=== PATIENT | female | born 2000 | race Caucasian/White ===

== ENCOUNTER 2023-07-03 10:58 | Emergency (ER) | payer SELFPAY ==
[2023-07-03] MEDS ORDERED: ONDANSETRON 4 MG/2 ML VIAL ONE (11:36)
[2023-07-03] MEDS ORDERED: LORazepam 2 MG/ML VIAL ONE (11:37)
[2023-07-03] MEDS ORDERED: NA CHLORIDE 0.9% 1,000 ML ONE (11:37)
[2023-07-03 12:04] LABS: Absolute Lymphocytes (CBC) 0.9 K/uL (0.7-4.9); Absolute Monocytes 0.5 K/uL (0.1-1.3); Absolute Neutrophil 11.3 K/uL (1.8-8.0); Basophils % 0.1 % (0-1.3); Eosinophils % 0.1 % (0-4.4); Hematocrit 41.9 % (36.0-45.0); Hemoglobin 14.3 g/dL (12.0-15.0); Lymphocytes % 7.3 % (15.3-44.8); MCH 29.9 pg (27.0-35.0); MCHC 34.1 g/dL (32.0-36.0); MCV 87.6 fL (80-100); MPV 8.2 fL (7.6-11.3); Monocytes % 3.9 % (3.3-12.3); Neutrophils % 88.6 % (41.7-73.7); Platelets 293 thou/uL (152-406); RBC Red Blood Cell Count 4.79 M/uL (3.86-4.86); Red Cell Distribution Width 12.7 % (12.1-15.2)
[2023-07-03 12:07] LABS: Specific Gravity 1.021 (1.005-1.030)
[2023-07-03 12:10] LABS: PT Prothrombin Time 13.8 SECONDS (9.5-12.5); PTT, Activated Partial Thromb 34.1 SECONDS (24.3-36.9); Protime INR 1.26
[2023-07-03 12:11] LABS: Specific Gravity 1.021 (1.005-1.030); Sqamous Epithelial <5 /HPF (None Seen); Urine Bacteria None Seen /HPF (<20); Urine Bilirubin NEGATIVE (Negative); Urine Blood Negative (Negative); Urine Clarity Turbid (Clear); Urine Color Yellow (Yellow); Urine Culture Reflex Order NOT NEEDED; Urine Glucose NEGATIVE (Negative); Urine Ketones 3+ (Negative); Urine Microscopic Reflex YN ORDER UMIC; Urine Mucus Slight /HPF (None Seen); Urine Nitrite NEGATIVE (Negative); Urine Protein TRACE (Negative); Urine RBC <5 /HPF (None Seen); Urine Urobilinogen Normal (Normal); Urine WBC <5 /HPF (<5); Urine pH 7.5 (5.0-7.0)
[2023-07-03 12:19] LABS: Barbiturates NEGATIVE (NEGATIVE); Benzodiazepines NEGATIVE (NEGATIVE); Cocaine NEGATIVE (NEGATIVE); METHAMPHETAM NEGATIVE (NEGATIVE); Methadone NEGATIVE (NEGATIVE); Opiates NEGATIVE (NEGATIVE); Phencyclidine NEGATIVE (NEGATIVE); THC Cannibis POSITIVE (NEGATIVE)
[2023-07-03 12:31] LABS: ALT/SGPT 105 U/L (13-56); AST/SGOT 21 U/L (15-37); Albumin 4.6 g/dL (3.4-5.0); Albumin/Globulin Ratio 1.3 (1.1-1.8); Alkaline Phosphatase 79 U/L (45-117); Anion Gap 14.1 mEq/L (5.0-15.0); BUN Blood Urea Nitrogen 6 mg/dL (7-18); Bicarbonate 21 mEq/L (21-32); Bilirubin Direct 0.2 mg/dL (0-0.2); Bilirubin Indirect, Calculated 0.7 mg/dL (0.2-0.8); Bilirubin Total 0.9 mg/dL (0.2-1.0); Globulin 3.6 g/dL (2.3-3.5); Glomerular Filtration Rate 90 ml/min (=/>90); Glucose Level 136 mg/dL (74-106); Potassium 3.1 mEq/L (3.5-5.1); Protein, Total 8.2 g/dL (6.4-8.2); Sodium Level 136 mEq/L (136-145)
--- NOTE | 2023-07-03 13:01 | EDPHYS ---
Physician Documentation [facility] Name: Iron Yuan Age: 23 yrs Sex: Female : 2000 Arrival Date: 07/03/2023 Time: 10:58 Bed 18 Private MD: ED Physician Abebe Hightower HPI: 07/02 12:54 This 23 yrs old Female presents to ER via Ambulatory with complaints of jordon Anxiety. 12:54 The patient presents to the emergency department with anxiety, over unknown jordon circumstances. Onset: The symptoms/episode began/occurred just prior to arrival, this morning. Past psychiatric history: Prior diagnosis: anxiety. The patient presents to the emergency department with nausea, vomiting, that is intermittent. Possible causes: unknown. The symptoms are aggravated by food , The symptoms are alleviated by nothing. remaining still. Associated signs and symptoms: Pertinent positives: abdominal pain, nausea, vomiting. Historical: - Allergies: 11:13 No Known Allergies; hb - Home Meds: 11:13 Lexapro Oral [Active]; gabapentin oral [Active]; hb - PMHx: 11:13 Anxiety; hb - PSHx: 11:13 None; hb - Immunization history:: Adult Immunizations up to date. - Infectious Disease History:: Denies. - Social history:: Smoking status: Patient denies any tobacco usage or history of. - Family history:: not pertinent. ROS: 12:54 Constitutional: Negative for fever, chills, and weight loss, Eyes: Negative for injury, jordon pain, redness, and discharge, ENT: Negative for injury, pain, and discharge, Neck: Negative for injury, pain, and swelling, Cardiovascular: Negative for chest pain, palpitations, and edema, Respiratory: Negative for shortness of breath, cough, wheezing, and pleuritic chest pain, Abdomen/GI: Negative for abdominal pain, nausea, vomiting, diarrhea, and constipation, Back: Negative for injury and pain, : Negative for injury, bleeding, discharge, and swelling, MS/Extremity: Negative for injury and deformity, Skin: Negative for injury, rash, and discoloration, Neuro: Negative for headache, weakness, numbness, tingling, and seizure, Psych: Negative for depression, anxiety, suicide ideation, homicidal ideation, and hallucinations, Allergy/Immunology: Negative for hives, rash, and allergies, Endocrine: Negative for neck swelling, polydipsia, polyuria, polyphagia, and marked weight changes, Hematologic/Lymphatic: Negative for swollen nodes, abnormal bleeding, and unusual bruising, Exam: 12:54 Constitutional: This is a well developed, well nourished patient who is awake, alert, jordon and in no acute distress. Head/Face: Normocephalic, atraumatic. Eyes: Pupils equal round and reactive to light, extra-ocular motions intact. Lids and lashes normal. Conjunctiva and sclera are non-icteric and not injected. Cornea within normal limits. Periorbital areas with no swelling, redness, or edema. ENT: Nares patent. No nasal discharge, no septal abnormalities noted. Tympanic membranes are normal and external auditory canals are clear. Oropharynx with no redness, swelling, or masses, exudates, or evidence of obstruction, uvula midline. Mucous membranes moist. Neck: Trachea midline, no thyromegaly or masses palpated, and no cervical lymphadenopathy. Supple, full range of motion without nuchal rigidity, or vertebral point tenderness. No Meningismus. Chest/axilla: Normal chest wall appearance and motion. Nontender with no deformity. No lesions are appreciated. Cardiovascular: Regular rate and rhythm with a normal S1 and S2. No gallops, murmurs, or rubs. Normal PMI, no JVD. No pulse deficits. Respiratory: Lungs have equal breath sounds bilaterally, clear to auscultation and percussion. No rales, rhonchi or wheezes noted. No increased work of breathing, no retractions or nasal flaring. Abdomen/GI: Soft, non-tender, with normal bowel sounds. No distension or tympany. No guarding or rebound. No evidence of tenderness throughout. Back: No spinal tenderness. No costovertebral tenderness. Full range of motion. Skin: Warm, dry with normal turgor. Normal color with no rashes, no lesions, and no evidence of cellulitis. MS/ Extremity: Pulses equal, no cyanosis. Neurovascular intact. Full, normal range of motion. Neuro: Awake and alert, GCS 15, oriented to person, place, time, and situation. Cranial nerves II-XII grossly intact. Motor strength 5/5 in all extremities. Sensory grossly intact. Cerebellar exam normal. Normal gait. Psych: Awake, alert, with orientation to person, place and time. Behavior, mood, and affect are within normal limits. 12:54 ECG was reviewed by the Attending Physician. Vital Signs: 11:13 BP 155 / 90; Pulse 68; Resp 16; Temp 98; Pulse Ox 100% ; Weight 45.36 kg; Height 5 ft. hb 0 in. ; Pain 0/10; 12:10 BP 147 / 95; Pulse 49; Resp 16 S; Pulse Ox 100% on R/A; kc6 13:28 BP 124 / 75; Pulse 50; Resp 16 S; Pulse Ox 98% on R/A; kc6 11:13 Body Mass Index 19.53 (45.36 kg, 152.4 cm) hb 11:13 Pain Scale: Adult hb MDM: 11:05 Patient medically screened. [facility] 12:58 Differential diagnosis: drug withdrawal. Nonspecific abd pain, gastritis, pancreatitis, jordon viral gastroenteritis, gastroenteritis. Data reviewed: vital signs, nurses notes, lab test result(s), EKG. Consideration of Admission/Observation Escalation of care including admission/observation considered. I considered the following discharge prescriptions or medication management in the emergency department Medications were administered in the Emergency Department. See MAR. Independent interpretation of the following test(s) in the Emergency Department EKG: See my EKG interpretation above. Test considered but Not performed: CT: no ct abd/pelvis. Historians other than the Patient: Friend: friend informed. Care significantly affected by the following chronic conditions:. 07/02 11:21 Order name: Acetaminophen; Complete Time: 12:50 [facility] 07/02 11:21 Order name: Basic Metabolic Panel; Complete Time: 12:50 [facility] 07/02 11:21 Order name: CBC with Diff [facility] 07/02 11:21 Order name: ETOH Level; Complete Time: 12:50 [facility] 07/02 11:21 Order name: Hepatic Function; Complete Time: 12:50 [facility] 07/02 11:21 Order name: PT-INR; Complete Time: 12:50 [facility] 07/02 11:21 Order name: Test, Urine; Complete Time: 12:50 [facility] 07/02 11:21 Order name: Ptt, Activated; Complete Time: 12:50 [facility] 07/02 11:21 Order name: Salicylate; Complete Time: 12:50 [facility] 07/02 11:21 Order name: Urinalysis w/ reflexes; Complete Time: 12:50 [facility] 07/02 11:21 Order name: Urine Drug Screen; Complete Time: 12:50 [facility] 07/02 13:03 Order name: CBC Smear Scan EDMS 07/02 11:21 Order name: EKG; Complete Time: 11:22 [facility] 07/02 11:21 Order name: EKG - Nurse/Tech; Complete Time: 12:01 [facility] 07/02 11:21 Order name: IV Saline Lock; Complete Time: 12: [facility] 07/02 11:21 Order name: Labs collected and sent; Complete Time: 12: [facility] 07/02 11:21 Order name: Suicide Screening ([place]); Complete Time: 12: [facility] EC:54 Rate is 49 beats/min. QRS [place] is Normal. MD interval is normal. QRS interval is jordon normal. QT interval is normal. No Q waves. T waves are Normal. No ST changes noted. Clinical impression: Sinus bradycardia. Interpreted by me. Reviewed by me. Administered Medications: 12:01 Drug: NS 0.9% IV 1000 ml IV at 1 bolus Per protocol; 1000 mL bolus Route: IV; Rate: 1 kc6 bolus; Site: right antecubital; 13:29 Follow up: Response: No adverse reaction; IV Status: Completed infusion; IV Intake: kc6 1000ml 12:01 Drug: Ondansetron IVP 4 mg IVP once; over 2 minutes Route: IVP; Site: right antecubital;kc6 12:25 Follow up: Response: No adverse reaction; Nausea is decreased; Vomiting decreased kc6 12:01 Drug: Ativan IVP 1 mg IVP once Route: IVP; Site: right antecubital; kc6 12:25 Follow up: Response: No adverse reaction; Anxiety decreased; RASS: Drowsy (-1) kc6 13:20 Drug: Potassium PO Effervescent Tablet 25 mEq PO once; dissolve in 4 ounces of water or kc6 juice Route: PO; 13:29 Follow up: Response: No adverse reaction kc6 13:20 Drug: Promethazine IVP 12.5 mg IVP once Route: IVP; Site: right antecubital; kc6 13:29 Follow up: Response: No adverse reaction kc6 Disposition Summary: 07/03/23 13:00 Discharge Ordered Notes: Location: Home jordon Problem: new jordon Symptoms: have improved jordon Condition: Stable jordon Diagnosis - Anxiety disorder, unspecified jordon - Vomiting jordon - Cannabis abuse with cannabis-induced anxiety disorder jordon - Hypokalemia jordon Followup: jordon - With: Private Physician - When: 2 - 3 days - Reason: Recheck today's complaints, Continuance of care, Re-evaluation by your physician Followup: jordon - With: Gentry Schmidt DO - When: 2 - 3 days - Reason: Recheck today's complaints, Re-evaluation by your physician Discharge Instructions: - Discharge Summary Sheet jordon - Potassium Content of Foods jordon - Cannabis Use Disorder jordon - Supporting Someone With an Addiction jordon - Social Anxiety Disorder, Adult jordon - Generalized Anxiety Disorder, Adult jordon - Hypokalemia jordon - Managing Anxiety, Adult jordon - Cannabinoid Hyperemesis Syndrome jordon Forms: - Medication Reconciliation Form jordon - Antibiotic Education jordon - Prescription Opioid Use jordon - Patient Portal Instructions jordon - Leadership Thank You Letter [facility] Prescriptions: - ondansetron 4 mg Oral Tablet,disintegrating - take 1 tablet ORAL route every 6-8 hours; 20 tablet; Refills: 0, Product jordon Selection Permitted Signatures: Dispatcher [employer] EDMS Abebe Hightower MD MD cha Baxter, Heather, RN RN Mimi Fernando RN RN kc6 Corrections: (The following items were deleted from the chart) 11: 11:22 ACETAMINOPHEN+C.LAB.BRZ ordered. EDMS EDMS 11: 11:22 BASIC METABOLIC PANEL+C.LAB.BRZ ordered. EDMS EDMS 11: 11:22 CBC+H.LAB.BRZ ordered. EDMS EDMS 11: 11:22 ETHANOL+C.LAB.BRZ ordered. EDMS EDMS 11: 11:22 HEPATIC FUNCTION+C.LAB.BRZ ordered. EDMS EDMS 11:22 11:22 PROTIME (+INR)+COAG.LAB.BRZ ordered. EDMS EDMS 11: 11:22 Test, Urine+UC.LAB.BRZ ordered. EDMS EDMS 11: 11:22 PTT, ACTIVATED+COAG.LAB.BRZ ordered. EDMS EDMS 11:22 11:22 SALICYLATE+C.LAB.BRZ ordered. EDMS EDMS 11:22 11:22 Urinalysis+U.LAB.BRZ ordered. EDMS EDMS 11: 11:22 URINE DRUG SCREEN+UC.LAB.BRZ ordered. EDMS EDMS
--- NOTE | 2023-07-03 13:01 | ER ---
Nurse's Notes [facility] Name: Iron Yuan Age: 23 yrs Sex: Female : 2000 Arrival Date: 07/03/2023 Time: 10:58 Bed 18 Private MD: Diagnosis: Anxiety disorder, unspecified;Vomiting;Cannabis abuse with cannabis-induced anxiety disorder;Hypokalemia Presentation: 07/02 11:13 Chief complaint: Anxiety and N/V since this morning. Coronavirus screen: At this time, hb the client does not indicate any symptoms associated with coronavirus-19. Ebola Screen: No symptoms or risks identified at this time. Initial Sepsis Screen: Does the patient meet any 2 criteria? No. Patient's initial sepsis screen is negative. Does the patient have a suspected source of infection? No. Patient's initial sepsis screen is negative. Risk Assessment: Do you want to hurt yourself or someone else? Patient reports no desire to harm self or others. Onset of symptoms was July 03, 2023. 11:13 Method Of Arrival: Ambulatory hb 11:13 Acuity: RHONDA 3 hb Triage Assessment: 11:13 General: Appears in no apparent distress. Behavior is cooperative, anxious, restless. hb Pain: Denies pain. Neuro: Level of Consciousness is awake, alert, obeys commands, Oriented to person, place, time, situation. Cardiovascular: Patient's skin is warm and dry. Respiratory: Respiratory effort is even, unlabored, Respiratory pattern is regular, symmetrical. Historical: - Allergies: 11:13 No Known Allergies; hb - Home Meds: 11:13 Lexapro Oral [Active]; gabapentin oral [Active]; hb - PMHx: 11:13 Anxiety; hb - PSHx: 11:13 None; hb - Immunization history:: Adult Immunizations up to date. - Infectious Disease History:: Denies. - Social history:: Smoking status: Patient denies any tobacco usage or history of. - Family history:: not pertinent. Screenin:19 [facility] ED Fall Risk Assessment (Adult) History of falling in the last 3 months, kc6 including since admission No falls in past 3 months (0 pts) Confusion or Disorientation No (0 pts) Intoxicated or Sedated No (0 pts) Impaired Gait No (0 pts) Mobility Assist Device Used No (0 pt) Altered Elimination No (0 pt) Score/Fall Risk Level 0 - 2 = Low Risk. Abuse screen: Denies threats or abuse. Denies injuries from another. Nutritional screening: No deficits noted. Tuberculosis screening: No symptoms or risk factors identified. Assessment: 11:18 General: Appears in no apparent distress. uncomfortable, well groomed, well developed, kc6 Behavior is anxious, crying, restless. Pain: Denies pain. Neuro: Level of Consciousness is awake, alert, obeys commands, Oriented to person, place, time, situation, Appropriate for age. Cardiovascular: Capillary refill < 3 seconds. Respiratory: Airway is patent Trachea midline Respiratory effort is even, unlabored, Respiratory pattern is regular, symmetrical. GI: Pt is actively vomiting clear fluid, Reports nausea, vomiting, Patient currently denies abdominal pain, diarrhea. : No signs and/or symptoms were reported regarding the genitourinary system. EENT: No signs and/or symptoms were reported regarding the EENT system. Derm: No signs and/or symptoms reported regarding the dermatologic system. Skin is intact, is healthy with good turgor, Skin is clammy, Skin is normal, Skin temperature is warm. Musculoskeletal: No signs and/or symptoms reported regarding the musculoskeletal system. Circulation, motion, and sensation intact. Capillary refill < 3 seconds, Range of motion: intact in all extremities. 11:18 Reassessment: PT DENIES SI OR HI. kc6 12:10 Reassessment: Patient appears in no apparent distress at this time. No changes from kc6 previously documented assessment. Patient and/or family updated on plan of care and expected duration. Pain level reassessed. Patient is alert, oriented x 3, equal unlabored respirations, skin warm/dry/pink. Patient states feeling better. Patient states symptoms have improved. 13:28 Reassessment: Patient appears in no apparent distress at this time. No changes from kc6 previously documented assessment. Patient and/or family updated on plan of care and expected duration. Pain level reassessed. Patient is alert, oriented x 3, equal unlabored respirations, skin warm/dry/pink. Vital Signs: 11:13 BP 155 / 90; Pulse 68; Resp 16; Temp 98; Pulse Ox 100% ; Weight 45.36 kg; Height 5 ft. hb 0 in. ; Pain 0/10; 12:10 BP 147 / 95; Pulse 49; Resp 16 S; Pulse Ox 100% on R/A; kc6 13:28 BP 124 / 75; Pulse 50; Resp 16 S; Pulse Ox 98% on R/A; kc6 11:13 Body Mass Index 19.53 (45.36 kg, 152.4 cm) hb 11:13 Pain Scale: Adult hb ED Course: 11:01 Patient arrived in ED. mg5 11:05 Abebe Hightower MD is Attending Physician. [facility] 11:07 Mimi Fernando, ZEV is Primary Nurse. kc6 11:13 Triage completed. hb 11:15 Arm band placed on. hb 11:19 Patient has correct armband on for positive identification. Bed in low position. Call kc6 light in reach. Side rails up X 1. Client placed on continuous cardiac and pulse oximetry monitoring. NIBP monitoring applied. Door closed. Noise minimized. Lights dimmed. Pillow given. 12:01 Inserted saline lock: 20 gauge in right antecubital area, using aseptic technique. kc6 Blood collected. 13:00 Gentry Schmidt DO is Referral Physician. [facility] 13:29 Provided Education on: anxiety management. kc6 13:29 No provider procedures requiring assistance completed. IV discontinued, intact, kc6 bleeding controlled, No redness/swelling at site. Pressure dressing applied. Administered Medications: 12:01 Drug: NS 0.9% IV 1000 ml IV at 1 bolus Per protocol; 1000 mL bolus Route: IV; Rate: 1 kc6 bolus; Site: right antecubital; 13:29 Follow up: Response: No adverse reaction; IV Status: Completed infusion; IV Intake: kc6 1000ml 12:01 Drug: Ondansetron IVP 4 mg IVP once; over 2 minutes Route: IVP; Site: right antecubital;kc6 12:25 Follow up: Response: No adverse reaction; Nausea is decreased; Vomiting decreased kc6 12:01 Drug: Ativan IVP 1 mg IVP once Route: IVP; Site: right antecubital; kc6 12:25 Follow up: Response: No adverse reaction; Anxiety decreased; RASS: Drowsy (-1) kc6 13:20 Drug: Potassium PO Effervescent Tablet 25 mEq PO once; dissolve in 4 ounces of water or kc6 juice Route: PO; 13:29 Follow up: Response: No adverse reaction kc6 13:20 Drug: Promethazine IVP 12.5 mg IVP once Route: IVP; Site: right antecubital; kc6 13:29 Follow up: Response: No adverse reaction kc6 Medication: 13:30 VIS not applicable for this client. kc6 Intake: 13:29 IV: 1000ml; Total: 1000ml. kc6 Outcome: 13:00 Discharge ordered by MD. [email or web address] 13:29 Discharged to home ambulatory, with friend, kcBuck 13:29 Condition: improved 13:29 Discharge instructions given to patient, Instructed on discharge instructions, follow up and referral plans. medication usage, Demonstrated understanding of instructions, follow-up care, medications, Prescriptions given X 1, :30 Patient left the ED. kc6 Signatures: Abebe Hightower MD MD cha Baxter, Heather, RN RN Mimi Desai RN RN kc6 Monica Pride mg5
[2023-07-03 13:03] LABS: Blood Morphology Comment NOT SEEN (NOT SEEN); Platelet Estimate ADEQ; White Blood Cell Scan OK (OK)
[2023-07-03] MEDS ORDERED: PROMETHAZINE INJ 25 MG/ML AMP ONE (13:09)
[2023-07-03] MEDS ORDERED: POTASSIUM 25 MEQ EFFERV TAB ONE (13:09)
[2023-07-03 14:16] VITALS: BP 124/75; TEMP 98; O2SAT 98
--- NOTE | 2023-07-06 13:26 | EKG ---
Test Date: 2023-07-03 Test Time: 11:46:51 Radio Interference Supervisor: MADDIE MEASUREMENT RESULTS: Intervals: Rate: 49 LA: 152 QRSD: 82 QT: 516 QTc: 466 [place]: P: 82 LA: 152 QRS: 86 T: 78 INTERPRETIVE STATEMENTS: Marked sinus bradycardia Abnormal ECG No previous ECG available for comparison Electronically Signed On 07-06-23 13:18:52 CDT by Elijah Arshad
== END 2023-07-03 13:30 | disposition home or self-care (01) ==
LOC: ER 10:58
DX: F41.9 Anxiety disorder, unspecified (principal); R11.10 Vomiting, unspecified; F12.180 Cannabis abuse with cannabis-induced anxiety disorder; E87.6 Hypokalemia
CPT/HCPCS: 36415; 80048; 80076; 80143; 80179; 80307; 81001; 81025; 82077; 85025; 85610; 85730; 93005; 96361; 96374; 96375; 99284; J2405; J2550; J7030